=== PATIENT | female | born 1965 | race Caucasian/White ===

== ENCOUNTER → 2017-10-28 | Day surgery (SDC) | payer BC ==
[~2017-10-28] MED LIST: ATIVAN0.5 MG PO; FENTANYL CITRATE/PF 100MCG/2 ML INJ ONE; HYOSCYAMINE SULFATE 0.5 MG/ML AMP ONE; JINTELI 1 MG-51 EACH PO; LIDOCAINE HCL 2% LOCAL INJ 5 ML SDV VIAL INJ ONE; MIDAZOLAM HCL 2 MG/2 ML VIAL ONE; PRISTIQ ER50 MG PO; PROPOFOL IV EMULSION 10 MG/ML 50 ML VIAL ONE; RESTASIS1 EACH INH
[2017-10-28 10:15] VITALS: BP 115/69
--- NOTE | 2017-10-28 10:34 | Operative Report ---
DATE OF PROCEDURE: October 28, 2017 REFERRING PHYSICIAN: Hema Agudelo MD PROCEDURE PERFORMED: Colonoscopy with biopsies. INDICATIONS FOR COLONOSCOPY: Colorectal cancer screening, lower abdominal pain. MEDICATION: Patient was done under MAC. Please see anesthesiologist's note. PROCEDURE: With the patient in the left lateral decubitus position, the flexible fiberoptic Olympus colonoscope was inserted into the rectum with ease and advanced all the way to the cecum. The ileocecal valve was intubated, and the scope was advanced into the terminal ileum. Biopsies were obtained of the terminal ileum. The scope was then withdrawn back into the colon. It was then withdrawn slowly. There were some patchy areas of erythema noted in the ascending colon, and multiple biopsies were obtained. The transverse and descending appeared to be within normal limits. There were some patchy areas of erythema and low-grade edema with lots of vascular markings noted in the distal sigmoid colon that was biopsied. The rectum appeared to be within normal limits. The scope was then retroflexed into the distal rectum, and small internal hemorrhoids were noted, none of which was actively bleeding. The scope was then straightened out. It was subsequently withdrawn. Patient tolerated the procedure well. IMPRESSION 1. Rule out patchy mild colitis, ascending colon. 2. Internal hemorrhoids, none actively bleeding. PLAN: Follow up histology. Initiate VSL #3 DS 1 p.o. daily and Bentyl 10 mg 1 p.o. t.i.d. Start high-fiber, low-fat diet. Patient might benefit from a followup colonoscopy in 5 to 10 years. Job#: [id number] cc:HEMA AGUDELO MD
== END | disposition home or self-care (01) ==
LOC: ENDO 07:53
PROVIDERS: ATTEND Internal Medicine Gastroenterology
DX: R10.31 Right lower quadrant pain (principal); K64.8 Other hemorrhoids; R14.2 Eructation; F41.9 Anxiety disorder, unspecified; F32.9 Major depressive disorder, single episode, unspecified; Z88.0 Allergy status to penicillin
CPT/HCPCS: 45380; J1980; J2001; J2250; 45378